=== PATIENT | female | born 1995 | race Caucasian/White ===

== ENCOUNTER 2017-01-14 20:53 | Emergency (ER) | payer MEDICAID ==
[2017-01-14 20:53] VITALS: BMI 31.9
[2017-01-14 21:22] VITALS: BP 132/92; PULSE 82; TEMP 98.3; O2SAT 99
--- NOTE | 2017-01-14 21:47 | C.PDOC ---
History Of Present Illness Patient is a 21 year old female who presents to the ER with a complaint of nasal congestion and left nostril bleeding whenever she blows her nose. Patient states it has happened several times before intermittently and stopped when she applies pressure. Patient was seen at [facility] today and yesterday for the same complaint. Denies fever, chills, or injury. Time Seen by Provider: 01/14/17 21:44 Chief Complaint (Nursing): ENT Problem History Per: Patient History/Exam Limitations: None Onset/Duration Of Symptoms: Days Current Symptoms Are (Timing): Still Present Symptoms Have Been: Episodic Anticoagulant/Antiplatlet Use?: Unknown Recent Aspirin Use: Unknown Past Medical History Reviewed: Historical Data, Nursing Documentation, Vital Signs Vital Signs: Last Vital Signs Temp 98.3 F 01/14/17 21:17 Pulse 82 01/14/17 21:17 Resp 20 01/14/17 21:58 BP 132/92 H 01/14/17 21:17 Pulse Ox 99 01/14/17 21:48 - Medical History PMH: No Chronic Diseases Surgical History: (x1) - [facility] Procedures EXTRACTION OF POC, LOW CERVICAL, OPEN APPROACH (12/28/15) MONITORING OF POC, CARDIAC RATE, DIRECTOR CRAFT CENTER APPROACH (12/28/15) Family History: States: Unknown Family Hx - Social History Hx Alcohol Use: No Hx Substance Use: No Review Of Systems Constitutional: Negative for: Fever, Chills ENT: Positive for: Nose Congestion, Other (Left nostril bleeding) Physical Exam - Physical Exam Appears: Well, Non-toxic Skin: Normal Color, Warm, Dry Head: Atraumatic, Normacephalic Nose: Normal, Other (Nasal congestion. No active bleeding) Oral Mucosa: Moist Chest: Symmetrical, No Tenderness Cardiovascular: Rhythm Regular, No Murmur Respiratory: Normal Breath Sounds, No Rales, No Rhonchi, No Wheezing Neurological/Psych: Oriented x3, Normal Speech, Normal Cognition ED Course And Treatment O2 Sat by Pulse Oximetry: 99 (room air) Progress Note: No abnormalities found in patient's physical exam, will advise to follow up with ENT, will be discharged home. Disposition - Disposition Referrals: Ynog Irwin MD [Primary Care Provider] - Dakota Hurtado MD [Staff Provider] - Disposition: HOME/ ROUTINE Disposition Time: 21:45 Condition: STABLE Additional Instructions: Follow up with PMD and ENT within 1-2 days. Return to ED if feel worse. Prescriptions: Oxymetazoline 0.05% [Oxymetazoline HCl 30 Ml] 1 ml NS Q4 #1 bottle Instructions: Nosebleed (ED) - Clinical Impression Clinical Impression: Epistaxis - Scribe Statement The provider has reviewed the documentation as recorded by the Scribe Jose M Ang All medical record entries made by the Patriciaibe were at my direction and personally dictated by me. I have reviewed the chart and agree that the record accurately reflects my personal performance of the history, physical exam, medical decision making, and the department course for this patient. I have also personally directed, reviewed, and agree with the discharge instructions and disposition.
[2017-01-14 21:59] VITALS: RESP 20
== END 2017-01-14 21:58 | disposition home or self-care (01) ==
LOC: MERGE 20:53 → SUPCPDRO 20:53 → C.ER 20:53
DX: R04.0 Epistaxis (principal)